=== PATIENT | male | born 1965 | race Caucasian/White ===

== ENCOUNTER 2017-07-24 09:45 | Emergency (ER) | payer BC ==
[~2017-07-24] VITALS: Ht 172.7 cm; Wt 71.5 kg
[~2017-07-24 09:45] MED LIST: METFORMIN HCL500 MG PO; TRAMADOL HCL50 MG PO
[2017-07-24 10:44] LABS: CHLORIDE 99 mEq/L (99-109); POTASSIUM 4.7 mEq/L (3.7-5.4); SODIUM 135 mEq/L (136-147)
[2017-07-24 10:49] LABS: CREATININE 1.1 mg/dL (0.6-1.3); GFR ESTIMATE (CALCULATED) > 59 mL/min/ (58.99-99999)
[2017-07-24 10:50] LABS: UREA NITROGEN (BUN) 13 mg/dL (9-23)
[2017-07-24 10:53] LABS: GLUCOSE 420 mg/dL (70-99)
[2017-07-24 10:56] LABS: TROP-I INTERPRETATION NEGATIVE; TROPONIN-I < 0.01 ng/mL (0.0-0.30)
[2017-07-24 11:45] LABS: HEMATOCRIT 51.5 % (38.0-50.0); HEMOGLOBIN 17.8 G/DL (12.5-16.6); MCH 29.3 PG (29.0-34.0); MCHC 34.6 G/DL (30.0-36.0); MCV 84.8 FL (86-99); PLATELET COUNT 377 K/uL (156-360); RBC DIS.WIDTH-SD 40.2 % (39-53); RED BLOOD COUNT 6.07 M/uL (4.00-5.50)
[2017-07-24 11:58] LABS: LIPASE 42 U/L (1.0-51.0)
[2017-07-24 14:02] LABS: TROP-I INTERPRETATION NEGATIVE; TROPONIN-I < 0.01 ng/mL (0.0-0.30)
[2017-07-24 15:02] VITALS: BP 119/68
== END 2017-07-24 15:09 | disposition home or self-care (01) ==
LOC: EME 09:45
PROVIDERS: Emergency Medicine
DX: E11.65 Type 2 diabetes mellitus with hyperglycemia (principal); R07.89 Other chest pain; Z79.4 Long term (current) use of insulin; F17.200 Nicotine dependence, unspecified, uncomplicated
CPT/HCPCS: 71046; 80048; 82010; 82948; 83690; 84484; 85027; 93005; 99281; 99285; J7030